=== PATIENT | female | born 1975 | race African-American/Black ===

== ENCOUNTER 2025-01-02 15:02 | Emergency (ER) | payer MEDICAID ==
[~2025-01-02] VITALS: Ht 160 cm; Wt 101.0 kg
[2025-01-02 15:04] VITALS: O2SAT 96
[2025-01-02 15:09] VITALS: BP 136/74; PULSE 81; RESP 16; TEMP 36.7; O2SAT 100
[2025-01-02] MEDS: IBUPROFEN 600MG TABLET PO ONE (19:35)
== END 2025-01-03 00:06 | disposition home or self-care (01) ==
LOC: ER 15:02
DX: D25.9 Leiomyoma of uterus, unspecified (principal); I10 Essential (primary) hypertension; Z88.0 Allergy status to penicillin; Z88.5 Allergy status to narcotic agent
CPT/HCPCS: 76856; 99284

== ENCOUNTER 2025-03-08 08:54 | Emergency (ER) | payer BC, OTHER ==
[~2025-03-08] VITALS: Ht 160 cm; Wt 86.2 kg
[2025-03-08 09:01] VITALS: O2SAT 99
[2025-03-08 09:33] LABS: CHLORIDE 103 mEq/L (98-107); POTASSIUM 3.5 mEq/L (3.5-5.1); SODIUM 136 mEq/L (136-145)
[2025-03-08 09:34] LABS: CALCIUM 9.3 mg/dL (8.7-10.4); CARBON DIOXIDE 23 mEq/L (21-32)
[2025-03-08] MEDS: HYDRALAZINE 20MG/ML VIAL IV ONE (09:36)
[2025-03-08 09:39] LABS: CREATININE 0.9 mg/dL (0.6-1.0); GLUCOSE 131 mg/dL (70-105); UREA NITROGEN BLOOD 11 mg/dL (9-23)
[2025-03-08 10:07] LABS: BASOPHILS % 0.6 % (0.0-2.0); DIFFERENTIAL COMMENT 0; EOSINOPHILS % 3.2 % (0.0-5.0); HEMATOCRIT. 33.8 % (36.0-48.0); HEMOGLOBIN. 10.5 g/dL (12.0-16.0); LYMPHOCYTES % 42.8 % (20.0-50.0); MEAN CORPUSCULAR HEMOGLOBIN 23.4 pg (28.0-32.0); MEAN CORPUSCULAR HGB CONC 31.1 g/dL (31.0-37.0); MEAN CORPUSCULAR VOLUME 75.2 fL (81.0-99.0); MEAN PLATELET VOLUME 8.3 fl (7.4-10.4); MONOCYTES % 9.5 % (2.0-8.0); NEUTROPHILS % 43.9 % (40.0-76.0); PLATELET 318 x1000/uL (130-400); WHITE BLOOD COUNT 6.9 x1000/uL (4.5-11.0)
[2025-03-08] MEDS: KETOROLAC 30MG/ML VIAL IV ONE (10:17)
[2025-03-08 10:23] LABS: TROPONIN I HIGH SENSITIVITY < 4 ng/L (3.0-34)
[2025-03-08 10:46] LABS: CLARITY URINE CLEAR (CLEAR); COLOR URINE YELLOW (YELLOW); GLUCOSE URINE NEGATIVE (NEGATIVE); KETONES URINE NEGATIVE (NEGATIVE); LEUKOCYTE ESTERASE URINE NEGATIVE (NEGATIVE); NITRITE URINE NEGATIVE (NEGATIVE); OCCULT BLOOD URINE NEGATIVE (NEGATIVE); PROTEIN URINE NEGATIVE (NEGATIVE); SPECIFIC GRAVITY URINE 1.007 (1.005-1.030); UROBILINOGEN URINE 0.2 E.U./dL (0.2-1.0)
[2025-03-08 13:02] VITALS: BP 138/93; PULSE 104; RESP 13; TEMP 36.8; O2SAT 100
== END 2025-03-08 13:06 | disposition home or self-care (01) ==
LOC: ER 08:54
DX: I10 Essential (primary) hypertension (principal); Z98.890 Other specified postprocedural states; Z88.0 Allergy status to penicillin; Z88.5 Allergy status to narcotic agent
CPT/HCPCS: 80048; 81003; 81025; 85025; 84484; 36415; 70450; 93005; 96374; 96375; 99285; J0360; J1885; Z7610